=== PATIENT | female | born 1955 | race Two or more races ===

== ENCOUNTER 2023-06-29 10:49 | Emergency (ER) | payer OTHER ==
[~2023-06-29] VITALS: Ht 147.3 cm; Wt 49.9 kg
[2023-06-29 11:21] LABS: Basophils # (auto) 0 10 ^3/uL (0-0.2); Basophils % (auto) 1.1 % (0.0-2.0); Eosinophils # (auto) 0.1 10 ^3/uL (0-0.8); Eosinophils % (auto) 2.8 % (0.0-7.0); Hematocrit 39.8 % (36.0-46.0); Hemoglobin 13.4 g/dL (12.2-16.2); Lymphocytes # (auto) 1.3 10 ^3/uL (0.4-5.4); Lymphocytes % (auto) 31.2 % (10.0-50.0); Mean Corpuscular Hgb Conc. 33.6 g/dL (32.0-36.0); Mean Corpuscular Volume 86.2 fL (80.0-100.0); Monocytes # (auto) 0.4 10 ^3/uL (0-1.3); Monocytes % (auto) 9.4 % (0.0-12.0); Neutrophils # (auto) 2.4 10 ^3/uL (1.6-8.6); Neutrophils % (auto) 55.5 % (37.0-80.0); Nucleated Red Blood Cells % 0.1 %; Red Blood Cells 4.61 10^6/uL (4.0-5.20); Red Cell Distribution Width 13.9 % (11.8-14.3); White Blood Cell 4.3 10^3/uL (4.4-10.8)
[2023-06-29 11:32] LABS: INR 1.04 (0.9-1.15); Partial Thromboplastin Time 27.2 SEC (24.5-34.5); Prothrombin Time 10.9 sec (9.3-11.8)
[2023-06-29 12:05] LABS: Alanine Aminotransferase 34 U/L (7-40); Alkaline Phosphatase 103 U/L (46-116); Aspartate Aminotransferase 36 U/L (13-40); BUN/Creatinine Ratio 15.5 (10.0-20.0); Blood Urea Nitrogen 11 mg/dL (9-23); Calcium 9.7 mg/dL (8.5-10.1); Carbon Dioxide 26 mmol/L (20-30); Glucose 109 mg/dL (74-106)
[2023-06-29 12:06] LABS: Albumin 4.6 g/dL (3.2-4.8); Total Protein 8.2 g/dL (5.7-8.2)
[2023-06-29 12:42] LABS: Anion Gap 6 (5-15); Chloride 108 mmol/L (98-107); Potassium 3.7 mmol/L (3.5-5.1); Sodium 140 mmol/L (136-145)
[2023-06-29 15:02] VITALS: BP 137/72; PULSE 56; RESP 18; TEMP 98.3; O2SAT 96
== END 2023-06-29 15:31 | disposition left against medical advice (07) ==
LOC: ER 10:49
DX: R07.89 Other chest pain (principal); Z79.899 Other long term (current) drug therapy; Z53.21 Procedure and treatment not carried out due to patient leaving prior to being seen by health care provider
CPT/HCPCS: 36415; 71045; 80053; 83735; 83880; 84484; 85025; 85610; 85730; 93005